=== PATIENT | female | born 1965 | race Caucasian/White ===

== ENCOUNTER → 2016-12-17 | Outpatient (CLI) | payer OTHER ==
--- NOTE | 2016-12-17 19:41 | MA ---
Diagnostic Digital Bilateral Mammography, December 17, 2016 HISTORY: Abnormal bilateral CC mammograms on screening study of November 26, 2016. TECHNIQUE: Bilateral spot compression CC, rolled CC, and mediolateral mammograms. FINDINGS: Right breast: The parenchymal asymmetry identified within the medial right breast on the screening ex amination completely resolves on additional mammographic views compatible with an island of fibroglan dular asymmetry. Scattered benign appearing calcifications are present throughout the right breast pa renchyma. Left breast: The area of parenchymal asymmetry within the lateral aspect of the left breast also reso lves completely with additional views, especially the rolled lateral craniocaudal mammogram, again co mpatible with fibroglandular asymmetry and superimposition. No persistent mass. Scattered benign-appe aring calcifications. IMPRESSION: Benign additional mammographic views, both breasts. BI-RADS 2. Recommendation: Routine annual screening mammography. [facility] will send a result letter to the patient.
== END ==
LOC: BMCIMAGING 13:14
DX: Z12.39 Encounter for other screening for malignant neoplasm of breast (principal); R92.2 Inconclusive mammogram
CPT/HCPCS: G0204